=== PATIENT | male | born 1945 | race Caucasian/White ===

== ENCOUNTER 2020-03-11 20:17 | Observation (INO) | payer OTHER, SELFPAY ==
--- NOTE | ~2020-03-11 | CT_ITS ---
EXAMINATION: CT abdomen pelvis w con EXAM DATE: 03/11/2020 21:48 INDICATION: RUQ abd pain. TECHNIQUE: Spiral CT of the abdomen and pelvis was performed following intravenous injection of 100 m L Omnipaque 350. Axial, coronal and sagittal images were reviewed. The dose-length product (DLP) fo r this examination was 632.60 mGy-cm. The exposure was tailored according to patient size (auto mA e xposure control), and iterative reconstruction (ASIR) was used as additional dose reduction technique . There is no prior study for comparison. FINDINGS: Gallbladder is moderately distended with mild adjacent inflammation. There are small periph erally calcified gallstones. No biliary duct dilation. Appearance is suspicious for acute cholecystit is. There is a hypodensity in the left liver lobe medial segment measuring 4.5 cm consistent with a c yst. The spleen, pancreas, and adrenal glands are unremarkable. Portal and splenic veins are patent . Kidneys enhance symmetrically. There is no hydronephrosis. The prostate is unremarkable. The b ladder is unremarkable. There is no retroperitoneal or pelvic lymphadenopathy. There is moderate s cattered arteriosclerotic disease. There are surgical changes consistent with appendectomy. The stomach and small bowel are unremarkab le. There is expected amount of colonic stool. No free intraperitoneal gas. There are sternotomy wires. Mild cardiomegaly. Small amount of basilar groundglass opacity, nonspecific pneumonitis. Th ere are no osteoblastic or osteolytic lesions identified. IMPRESSION: 1. Cholelithiasis, pericholecystic inflammation. Probable acute cholecystitis. 2. Small about of bibasilar groundglass opacity, nonspecific pneumonitis. COVID 19 not excludable. Reviewed, dictated and finalized at location A. ER [facility]STRATE IMPRESSION: 1. Cholelithiasis, pericholecystic inflammation. Probable acute cholecystitis. 2. Small about of bibasilar groundglass opacity, nonspecific pneumonitis. COVI D 19 not excludable.
[2020-03-11 20:22] VITALS: BP 150/64; PULSE 63; RESP 20; TEMP 36.6; O2SAT 100
--- NOTE | 2020-03-11 20:32 | ED.ABDPAIN ---
HPI - Abdominal Pain General Chief Complaint: Abdominal Pain Stated Complaint: abd pain Time Seen by Provider: 03/11/20 20:28 Source: RN notes reviewed History of Present Illness HPI narrative: Patient presents emergency department from home for right upper quad abdominal pain. States pain began approximately 6 PM tonight the pain is located right upper quadrant does not radiate described as sharp and stabbing denies any fevers or chills chest pain shortness of breath nausea vomiting diarrhea or any other symptoms states he attempted to take Melinda-Beaufort at home with no relief Related Data Home Medications Medication Instructions Recorded Confirmed atorvastatin 40 mg PO DAILY 03/11/20 03/11/20 clopidogrel [Plavix] 75 mg PO DAILY 03/11/20 03/11/20 lisinopril 10 mg PO DAILY 03/11/20 03/11/20 metoprolol succinate 50 mg PO DAILY 03/11/20 03/11/20 Allergies Allergy/AdvReac Type Severity Reaction Status Date / Time No Known Allergies Allergy Verified 03/11/20 20:25 Review of Systems Review of Systems: Narrative: Gen.: Denies fevers or chills ENT: Denies congestion Respiratory: Denies shortness of breath or cough CV: Denies chest pain or palpitations GI: See HPI denies burning, urgency, frequency or hematuria Musculoskeletal: Denies back pain or muscle pain Neuro: Denies numbness, tingling, weakness or focal weakness Skin: Denies rash Except as documented, all other systems reviewed and negative [facility] Past Medical History Medical History (Updated 03/11/20 @ 22:29 by Micah Regan DO) Hypercholesterolemia Hypertension Social History Social History (Updated 03/11/20 @ 20:32 by Micah Regan DO) Smoking status: Never smoker Gender identity (if verbalized by the patient): Male Exam Narrative: Exam Narrative: APPEARANCE: No acute distress, nontoxic, resting in bed HEENT: Normocephalic, atraumatic, OMM RESPIRATORY: No respiratory distress, clear to auscultation bilaterally with no rhonchi wheezing or rales CARDIOVASCULAR: RRR s murmur ABDOMINAL: Soft, nondistended, tender palpation right upper quadrant no tenderness in right lower quadrant, left lower quadrant left upper quadrant no rebound or guarding MUSCULOSKELETAl: Moves all extremities. No clubbing, cyanosis or edema. NEURO: Awake and alert. Following commands, speech normal, no focal deficits SKIN:: Warm, dry. Normal Color PSYCHIATRIC: Normal affect/mood Course Course Emergency Course: Called discussed with Dr. Sahni presentation work-up agrees with consult at this time agrees with plan for Zosyn Discussed with KRISTINE Us for Dr. Watters presentation work-up agrees with admission at this time Discussed with patient and family results of workup and diagnosis. Discussed need for admission. Patient and family understand and agree to current treatment plan Vital Signs Vital signs: Vital Signs Temperature 97.9 F 03/11/20 20:22 Pulse Rate 63 03/11/20 20:22 Respiratory Rate 20 03/11/20 20:22 Blood Pressure 150/64 H 03/11/20 20:22 Pulse Oximetry 100 03/11/20 20:22 Temperature 97.9 F 03/11/20 20:22 Pulse Rate 63 03/11/20 20:22 Respiratory Rate 20 03/11/20 20:22 Blood Pressure 150/64 H 03/11/20 20:22 Pulse Oximetry 100 03/11/20 20:22 MDM - Abdominal Pain Lab Data Result diagrams: 03/11/20 21:03 03/11/20 21:03 Labs: Lab Results 03/11/20 03/11/20 Range/Units 21:03 21:03 WBC 5.9 (4.5-10.0) K/mm3 RBC 4.72 (4.6-6.20) M/mm3 Hgb 13.9 L (14.0-18.0) g/dL Hct 43.4 (42.0-52.0) % MCV 91.9 (80-100) fl MCH 29.4 (26-34) pg MCHC 32.0 (32-36) g/dl RDW 12.9 (11.5-14.5) % Plt Count 248 (150-375) k/mm3 MPV 9.6 (7.4-10.4) fl Immature Gran % (Auto) 0.3 (0-0.5) % Neut % (Auto) 64.0 (45.5-73.1) % Lymph % (Auto) 17.7 L (18.3-44.2) % [place] % (Auto) 13.5 H (2.6-8.5) % Eos % (Auto) 3.8 (0-4.4) % Baso % (Auto) 0.7 (0.2-1.2) %
[2020-03-11 21:10] LABS: Basophils Percent Auto 0.7 % (0.2-1.2); Eosinophils Absolute Auto 0.2 K/mm3 (0-0.3); Eosinophils Percent Auto 3.8 % (0-4.4); Hematocrit 43.4 % (42.0-52.0); Hemoglobin 13.9 g/dL (14.0-18.0); Immature Granulocyte Absolute 0.02 K/mm3 (0.00-0.031); Immature Granulocyte Percent A 0.3 % (0-0.5); Lymphocytes Absolute Auto 1.04 K/mm3 (0.9-3.2); Lymphocytes Percent Auto 17.7 % (18.3-44.2); Mean Corpuscular Hemoglobin 29.4 pg (26-34); Mean Corpuscular Volume 91.9 fl (80-100); Mean Platelet Volume 9.6 fl (7.4-10.4); Monocytes Absolute Auto 0.8 K/mm3 (0.1-0.6); Monocytes Percent Auto 13.5 % (2.6-8.5); Neutrophils Absolute Auto 3.8 K/mm3 (1.3-6.7); Platelet Count Result 248 k/mm3 (150-375); Red Blood Count 4.72 M/mm3 (4.6-6.20); Red Cell Distribution Width 12.9 % (11.5-14.5); White Blood Count 5.9 K/mm3 (4.5-10.0)
[2020-03-11] MEDS: SODIUM CHLORIDE 0.9% IV 1,000 ML 999 ML IV CONT (21:16)
[2020-03-11 21:25] LABS: Alanine Aminotransferase 41 U/L (4-50); Albumin Level 4.5 g/dL (3.5-5.1); Alkaline Phosphatase 93 U/L (38-126); Anion Gap 11 mmol/L (8-16); Aspartate Amino Transferase 45 U/L (17-59); Bilirubin,Total 0.4 mg/dL (0.2-1.3); Blood Urea Nitrogen 13 mg/dL (9-20); Calcium 9.6 mg/dL (8.4-10.2); Carbon Dioxide 28 mmol/L (22-30); Chloride 101 mmol/L (98-107); Estimated CRCL calculation 60 ml/min; Estimated Glomerular Filt Rate > 60; Glucose 112 mg/dL (75-110); Lipase 271 U/L (23-300); Potassium 3.7 mmol/L (3.4-5.0); Sodium 140 mmol/L (137-145)
--- NOTE | 2020-03-11 22:08 | PC.NURSE ---
Pt states he is unable to give urine sample. Informed pt that we will have to straight cath him if he is still unable to give sample.
[2020-03-11] MEDS: MORPHINE SULFATE (*CRX) 2 MG/ML INJ IV PUSH (22:32)
[2020-03-11 22:34] LABS: Add Urine Microscopic? YES; Appearance Urine Clear (Clear); Bilirubin Urine Negative (Negative); Blood Urine Negative (Negative); Color Urine Straw (Yellow); Glucose Urine UA Negative (Negative); Ketones Urine Trace mg/dL (Negative); Leukocyte Esterase Ur Negative LEU/UL (Negative); Mucus Urine Rare /lpf; Nitrate Urine Negative (Negative); Protein Urine Negative (Negative); RBC Urine 0-2 /hpf (0-2); Urobilinogen Urine Negative mg/dL (<2.0); WBC Urine 0-3 /hpf
--- NOTE | 2020-03-11 22:45 | PM.IMHP ---
H&P: HPI History of Present Illness Date/Time: 03/11/20 22:45 Chief Complaint: Abdominal pain. Narrative: Micah Cano is a 74-year-old male with coronary artery disease and hypertension who presented to the emergency department earlier today from home with complaints of abdominal pain. At around 18:00 he developed some generalized abdominal discomfort and nausea for which he took an acid without relief. Not long thereafter he developed pretty significant sharp and stabbing pain in his right upper quadrant, radiating somewhat into the right flank. It has been unrelenting since that time, and in route to the emergency department he did have an episode of emesis. CT of the abdomen and pelvis demonstrates acute cholecystitis and he is being admitted in this setting. He has never had similar symptoms in the past. He denies fever and chills. Review of Systems Review of Systems: Narrative: Twelve systems were reviewed with pertinent positives and negatives as per HPI. He is status post three-vessel CABG on 01/15/2020. Prior to that he was on no medications. One day while he and his were out walking he developed chest pain which ultimately led to him having the bypass. He has done quite well since that time and has not had chest pain or shortness of breath. He has mild lower extremity edema. No orthopnea or PND. Except as documented, all other systems were reviewed and are negative. [facility] Past Medical History Medical History (Updated 03/11/20 @ 23:19 by Abeba Agudelo PA-C) Coronary artery disease Hypertension Osteoarthritis Surgical History Surgical History (Updated 03/11/20 @ 23:19 by Abeba Agudelo PA-C) History of appendectomy History of coronary artery bypass graft (~01/15/20) Three-vessel bypass done at [facility] per Dr. Tavera. History of excision of pilonidal cyst History of total bilateral knee replacement Family History Family History (Updated 03/11/20 @ 23:20 by Abeba Agudelo PA-C) Father Lung cancer Sibling Dementia Sibling Cancer of kidney Social History Social History (Updated 03/11/20 @ 23:21 by Abeba Agudelo PA-C) Social History: The patient is and lives with his in [place]. He has 2 daughters. 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 Lifelong nonsmoker. No alcohol or illicit substance abuse. He designates his , Shannon, as his surrogate decision maker and he wishes to be a full code. Meds Home Medications and Allergies Home Medications Medication Instructions Recorded Confirmed Type atorvastatin 40 mg PO DAILY 03/11/20 03/11/20 History clopidogrel [Plavix] 75 mg PO DAILY 03/11/20 03/11/20 History lisinopril 10 mg PO DAILY 03/11/20 03/11/20 History metoprolol succinate 50 mg PO DAILY 03/11/20 03/11/20 History Allergies Allergy/AdvReac Type Severity Reaction Status Date / Time No Known Allergies Allergy Verified 03/11/20 20:25 Vital Signs Vital Signs - 24 hr 03/11/20 20:22 Temperature 97.9 F Pulse Rate 63 Respiratory Rate 20 Blood Pressure 150/64 H Pulse Oximetry 100 Exam Narrative: Exam Narrative: General: Well-developed male supine in bed in mild pain. Weight: 82.5 kg. BMI: 26.1. HEENT: PERRL, EOMI. Sclerae anicteric. Oral mucosa is moist. Neck: Supple. Respiratory: Lungs are clear to auscultation bilaterally. Cardiovascular: Regular rate and rhythm with S1-S2. Chest: Healing sternotomy scar. Gastrointestinal: Abdomen is soft and mildly distended. Positive bowel sounds. He is tender to palpation in the right upper quadrant. No voluntary guarding or rebound tenderness. Skin: Warm and dry. No rash or lesions on limited exam. Extremities: No cyanosis or clubbing. Trace caroline ankle edema bilaterally. Left radial pulse is diminished and it looks like he had an arterial graft just above that site for his bypass. Right radial and pedal pulses palpable.
[2020-03-11 23:51] VITALS: BP 153/66; RESP 18; TEMP 36.7; O2SAT 97
[2020-03-12] VITALS (10 sets, daily range): BP systolic 120–138; BP diastolic 56–86; PULSE 55–76; RESP 12–20; TEMP 36.1–36.9; O2SAT 94–100; BMI 26.5
--- NOTE | 2020-03-12 00:01 | ADMGEN ---
This patient, Micah Cano, was admitted to Medical Room 252-01. Patient/family oriented to hospital policies and general routines including ID bracelet, bed and alarms, visiting hours, pain management, procedures, bathroom and other care routines, personal items, smoking policy, room service/diet, and visiting hours. Information on how to activate the Rapid Response Team has been discussed. Patient/Family are encouraged to report perceived risks to care and to ask questions if they do not understand what they are told or what they should do.
[2020-03-12] MEDS: SODIUM CHLORIDE 0.9% IV 1,000 ML 100 ML IV CONT (00:12)
[2020-03-12] MEDS: MORPHINE SULFATE (*CRX) 4 MG/ML INJ 2 MG IV PUSH ×4 (00:25→08:14)
[2020-03-12 06:31] LABS: Basophils Percent Auto 0.6 % (0.2-1.2); Eosinophils Absolute Auto 0.1 K/mm3 (0-0.3); Eosinophils Percent Auto 1.4 % (0-4.4); Hemoglobin 13.1 g/dL (14.0-18.0); Immature Granulocyte Absolute 0.01 K/mm3 (0.00-0.031); Immature Granulocyte Percent A 0.2 % (0-0.5); Lymphocytes Absolute Auto 0.91 K/mm3 (0.9-3.2); Lymphocytes Percent Auto 18.7 % (18.3-44.2); Mean Corpuscular Hemoglobin 29.4 pg (26-34); Mean Corpuscular Volume 91.9 fl (80-100); Mean Platelet Volume 9.7 fl (7.4-10.4); Monocytes Absolute Auto 0.7 K/mm3 (0.1-0.6); Neutrophils Absolute Auto 3.1 K/mm3 (1.3-6.7); Neutrophils Percent Auto 64.1 % (45.5-73.1); Platelet Count Result 207 k/mm3 (150-375); Red Blood Count 4.46 M/mm3 (4.6-6.20); White Blood Count 4.9 K/mm3 (4.5-10.0)
[2020-03-12 07:03] LABS: Alanine Aminotransferase 36 U/L (4-50); Albumin Level 3.5 g/dL (3.5-5.1); Alkaline Phosphatase 77 U/L (38-126); Anion Gap 9 mmol/L (8-16); Aspartate Amino Transferase 37 U/L (17-59); Bilirubin,Total 0.4 mg/dL (0.2-1.3); Blood Urea Nitrogen 9 mg/dL (9-20); Calcium 8.6 mg/dL (8.4-10.2); Carbon Dioxide 25 mmol/L (22-30); Chloride 104 mmol/L (98-107); Estimated CRCL calculation 74 ml/min; Estimated Glomerular Filt Rate > 60; Glucose 99 mg/dL (75-110); Magnesium 1.9 mg/dL (1.6-2.3); Potassium 3.7 mmol/L (3.4-5.0); Sodium 138 mmol/L (137-145)
--- NOTE | 2020-03-12 09:23 | PM.IMHP ---
H&P: HPI History of Present Illness Date/Time: 03/12/20 09:23 Chief Complaint: Right upper quadrant pain Narrative: Micah Cano is a 74 male with a history of coronary artery disease and hypertension who presented to the emergency department last evening from home with complaints of abdominal pain. At around 18:00 he developed some generalized abdominal discomfort in the epigatrium and RUQ and nausea for which he took antacid without relief. Not long thereafter he developed pretty significant sharp and stabbing pain in his right upper quadrant, radiating somewhat into the right flank. It has been unrelenting since that time, and in route to the emergency department he did have an episode of emesis. Workup in the emergency room included a CT scan of the abdomen and pelvis and labs which shows somewhat elevated white count. His liver function tests were normal. CT of the abdomen and pelvis demonstrates acute cholecystitis and he is being admitted in this setting. He has never had similar symptoms in the past. He denies fever and chills Review of Systems Constitutional: Constitutional: Reports no additional constitutional complaints, Reports fatigue and Denies malaise Eyes: Eyes: Denies change in vision and Denies loss of vision ENT: Reports Normal hearing present, Denies change in voice, Denies dizziness, Denies hoarseness and Denies sore throat Cardiovascular: Cardiovascular: Denies chest pain, Denies leg edema and Denies dyspnea Respiratory: Respiratory: Denies cough, Denies dyspnea and Denies wheezing Gastrointestinal: Gastrointestinal: Denies hematochezia, Denies change in bowel habits and Denies heartburn Genitourinary: Genitourinary: Denies urinary frequency and Denies urinary incontinence Neurologic: Reports Normal hearing present, Denies confusion, Denies dizziness, Denies loss of vision, Denies memory loss and Denies seizure-like activity Psychiatric: Psychiatric: Denies confusion, Denies depression and Denies memory loss Endocrine: Endocrine: Denies cold intolerance and Reports fatigue Hematologic/Lymphatic: Hematologic/Lymphatic: Denies easy bleeding and Denies easy bruising Allergic/Immunologic: Allergic/Immunologic: Denies wheezing PMFSH Past Medical History Medical History Coronary artery disease Hypertension Osteoarthritis Surgical History Surgical History History of appendectomy History of coronary artery bypass graft (~10/30/20) Three-vessel bypass done at [facility] per Dr. Tavera. History of excision of pilonidal cyst History of total bilateral knee replacement Family History Family History Father Lung cancer Sibling Dementia Sibling Cancer of kidney Social History Social History Social History: The patient is and lives with his in [place]. He has 2 daughters. 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 Lifelong nonsmoker. No alcohol or illicit substance abuse. He designates his , Shannon, as his surrogate decision maker and he wishes to be a full code. Smoking status: Former smoker Tobacco type: cigarettes Alcohol intake: current Drinks per week: 1 Substance use: current Substance use type: does not use Gender identity (if verbalized by the patient): Male Sexual Orientation (if Verbalized by the Patient): Straight or Heterosexual Spiritual care concerns: No Meds Home Medications and Allergies Home Medications Medication Instructions Recorded Confirmed Type atorvastatin 40 mg PO DAILY 03/11/20 03/11/20 History clopidogrel [Plavix] 75 mg PO DAILY 03/11/20 03/11/20 History lisinopril 10 mg PO DAILY 03/11/20 03/11/20 History metoprolol succinate 50 mg PO DAILY 03/11/2002/16
[2020-03-12] MEDS: LACTATED RINGERS 1,000 ML 30 ML IV CONT ×2 (10:20→12:45)
--- NOTE | 2020-03-12 10:22 | WPDANESEPPF ---
Anes - Initial Pre Proc Eval Date/Time: 03/12/20 10:22 Surgeon: Kamla David NP Pre Op Diagnosis: cholecystitis Patient Data Age: 74 Gender: M Height: 5 ft 10 in Weight: 84.2 kg Last Vital Signs Temp 36.9 C 03/12/20 06:00 Pulse 55 L 03/12/20 06:00 Resp 16 03/12/20 06:00 BP 138/56 L 03/12/20 06:00 Pulse Ox 99 03/12/20 06:00 Allergies Allergy/AdvReac Type Severity Reaction Status Date / Time No Known Allergies Allergy Verified 03/11/20 20:25 Home Medications Medication Instructions Recorded Confirmed Type atorvastatin 40 mg PO DAILY 03/11/20 03/11/20 History clopidogrel [Plavix] 75 mg PO DAILY 03/11/20 03/11/20 History lisinopril 10 mg PO DAILY 03/11/20 03/11/20 History metoprolol succinate 50 mg PO DAILY 03/11/20 03/11/20 History Laboratory Tests 03/11/20 03/11/20 03/11/20 21:03 21:03 22:25 WBC 5.9 K/mm3 K/mm3 (4.5-10.0) RBC 4.72 M/mm3 M/mm3 (4.6-6.20) Hgb 13.9 g/dL L g/dL (14.0-18.0) Hct 43.4 % % (42.0-52.0) MCV 91.9 fl fl (80-100) MCH 29.4 pg pg (26-34) MCHC 32.0 g/dl g/dl (32-36) RDW 12.9 % % (11.5-14.5) Plt Count 248 k/mm3 k/mm3 (150-375) MPV 9.6 fl fl (7.4-10.4) Immature Gran % (Auto) 0.3 % % (0-0.5) Neut % (Auto) 64.0 % % (45.5-73.1) Lymph % (Auto) 17.7 % L % (18.3-44.2) [place] % (Auto) 13.5 % H % (2.6-8.5) Eos % (Auto) 3.8 % % (0-4.4) Baso % (Auto) 0.7 % % (0.2-1.2) Lymph # (Auto) 1.04 K/mm3 K/mm3 (0.9-3.2) [place] # (Auto) 0.8 K/mm3 H K/mm3 (0.1-0.6) Eos # (Auto) 0.2 K/mm3 K/mm3 (0-0.3) Baso # (Auto) 0.0 K/mm3 K/mm3 (0.0-0.1) Abs Immat Gran (auto) 0.02 K/mm3 K/mm3 (0.00-0.031) Absolute Neuts (auto) 3.8 K/mm3 K/mm3 (1.3-6.7) Absolute Nucleated RBC 0.0 K/mm3 K/mm3 (0.0-0.012) Nucleated RBC % 0.0 % % (0.0-0.2) Sodium 140 mmol/L mmol/L (137-145) Potassium 3.7 mmol/L mmol/L (3.4-5.0) Chloride 101 mmol/L mmol/L (98-107) Carbon Dioxide 28 mmol/L mmol/L (22-30) Anion Gap 11 mmol/L mmol/L (8-16) BUN 13 mg/dL mg/dL (9-20) Creatinine 1.00 mg/dL mg/dL (0.7-1.3) Estim Creat Clear Calc 60 ml/min ml/min Estimated GFR > 60 (59 - ) Glucose 112 mg/dL H mg/dL (75-110) Calcium 9.6 mg/dL mg/dL (8.4-10.2) Magnesium Total Bilirubin 0.4 mg/dL mg/dL (0.2-1.3) AST 45 U/L U/L (17-59) ALT 41 U/L U/L (4-50) Alkaline Phosphatase 93 U/L U/L (38-126) Total Protein 8.0 g/dL g/dL (6.3-8.2) Albumin 4.5 g/dL g/dL (3.5-5.1) Lipase 271 U/L U/L (23-300) Urine Color Straw (Yellow) Urine Appearance Clear (Clear) Urine pH 6.0 (5.0-9.0) Ur Specific Hazel 1.040 H (1.001-1.035) Urine Protein Negative mg/dL mg/dL (Negative) Urine Glucose (UA) Negative mg/dL mg/dL (Negative) Urine Ketones Trace mg/dL mg/dL (Negative) Ur Blood (Man) Negative (Negative) Urine Nitrate Negative (Negative) Urine Bilirubin Negative (Negative) Urine Urobilinogen Negative mg/dL mg/dL (<2.0) Leukocyte Esterase Rfl Negative NISHA/UL NISHA/UL (Negative) Urine RBC 0-2 /hpf /hpf (0-2) Urine WBC 0-3 /hpf /hpf Urine Mucus Rare /lpf /lpf 03/12/20 03/12/20 06:25 06:25 WBC 4.9 K/mm3 K/mm3 (4.5-10.0) RBC 4.46 M/mm3 L M/mm3 (4.6-6.20) Hgb 13.1 g/dL L g/dL (14.0-18.0) Hct 41.0 % L % (42.0-52.0) MCV 91.9 fl fl (80-100) MCH 29.4 pg pg (26-34) MCHC 32.0 g/dl g/dl (32-36) RDW 13.0 % % (11.5-14.5) Plt Cou
--- NOTE | 2020-03-12 10:25 | ECG_ITS ---
Measurements Intervals [place] Rate: 59 P: 53 ME: 181 QRS: -12 QRSD: 107 T: 34 QT: 452 QTc: 448 Interpretive Statements SINUS BRADYCARDIA INCOMPLETE RIGHT BUNDLE BRANCH BLOCK BORDERLINE ECG Electronically Signed On 03-12-2020 14:16:09 TIP STITCHER by Jeffrey Doherty D.O.
--- NOTE | 2020-03-12 10:49 | WPDHPUPDATE1 ---
History and Physical Update Update Date/Time: 03/12/20 10:49 History and Physical has been reviewed, including an updated exam of the patient. There are NO changes in the patient's condition. Risks, benefits, and alternatives have been discussed and questions answered. Patient agrees to proceed with procedure.
[2020-03-12] MEDS: BUPIVACAINE/EPINEPHRINE 0.25% 10 ML VIAL 20 ML INFILTRATE (11:50)
--- NOTE | 2020-03-12 13:28 | PM.PROC ---
Procedure Note - Detailed Date of procedure: 03/12/20 Pre-op diagnosis: cholecystitis Acute cholecystitis with cholelithiasis Post-op diagnosis: same Procedure performed: Laparoscopic cholecystectomy Description of procedure: Patient was seen preoperatively in the holding area and risks, benefits and alternatives confirmed. Patient was taken to the operating room and general anesthesia was induced. A time out was then preformed with the surgery team confirming patient and site of surgery. The abdomen was prepped and draped in the usual sterile fashion. Incision was made just below the umbilicus with an 11 blade knife. I placed 2 stay sutures of O- Vicryl on either side of the mid-line fascia beneath the umbilicus and was then able to slide in the Whaley cannula through the fascial defect into the peritoneum. First under low flow and then under high flow the abdomen was insufflated with carbon dioxide never exceeding a pressure of 15. Three 5 mm trocars were then introduced under direct vision. The following trocars were introduced under direct vision: a 12 mm in the epigastrium and two 5 mm trocars along the right costal margin laterally in the subcostal area. This point the patient had tachycardia to the 120s and so we released the pneumo peritoneum and waited for 5 minutes. His heart rate came down and then we proceeded. After this we reinsufflated the abdomen and kept the pressure at 12 mmHg for the remaining portion of the procedure. He tolerated this well without further significant arrhythmias.. Please see anesthesiology notes for further details on this. There were significant omental adhesions to the underside of the gallbladder. These were taken down with blunt and sharp dissection using some Bovie cautery for hemostasis. We were able to dissect this completely away from the neck of the gallbladder. At this point because the gallbladder was tensely distended and discolored I went ahead and used an aspirating needle and decompressed the gallbladder. 20 cc of clear fluid from the gallbladder was sent for Gram stain and C&S. Another 20-40 cc was aspirated and the gallbladder was then easy to grasp. We grasped the gallbladder at the site where the drainage was aspirated with 1 grasper and then tented it up over the liver to proceed with the dissection. I then carefully used the L-shaped cautery and the [place] dissector to dissect out the triangle of Calot. I then was able to dissect out both the cystic duct and cystic artery and identify a window of safety. The gall bladder was grasped and the cystic duct and artery were dissected free and clipped with an 5 mm endo-clip email developer. The cystic duct and artery were clipped with use of 2 clips on the patient's side 1 on the gallbladder side utilizing a 5 mm endoclip-email developer. The cystic duct was then transected. The cystic artery was also transected at this point. The gall bladder was removed using electrocautery and then removed from the abdomen using an endobag . Some of the fluid from the gallbladder did spill from the bag as we were removing the gallbladder from the umbilical incision. This was caught in a lap and some 4x4s. I changed my outer gloves after we passed the specimen off the field. At this point since I had used a 12 mm port at the epigastric site I used the Niles cone and a 1. Vicryl passed with a granny needle to close the fascia at this site. We also used an 0 Vicryl on the visible anterior rectus sheath within this wound after removing the Niles cone. This approximated the fascia nicely at this 12 mm site in the epigastrium. The trocars were removed visualizing hemostasis and the remaining gas evacuated. The large trocar site at the umbilicus was closed with use of the 2 stay sutures of 0 Vicryl mentioned above and also a figure of 8 # 1-Vicryl suture and 1 more inferior 0 Vicryl suture. These 2 approximated the midline fascia well. The 2 stay sutures mentioned above
--- NOTE | 2020-03-12 14:36 | PM.IMPN ---
Progress Note: A&P Assessment and Plan (1) Cholecystitis, acute with cholelithiasis: Onset Date: ~03/11/20 Code(s): K80.00 - Calculus of gallbladder with acute cholecystitis without obstruction Status: Acute Assessment and Plan: CT scan shows signs of acute cholecystitis which started yesterday so he was a good candidate for laparoscopic cholecystectomy. tolerated laparoscopic cholecystectomy well. no current s/s of bleeding, infection, injury to surrounding organs Plavix on hold, re-examine in the morning. VS stable post - op, Alert and Oriented x 3. receiving IV antibiotic Zosyn (2) Hypercholesterolemia: Onset Date: Unknown Code(s): E78.00 - Pure hypercholesterolemia, unspecified Status: Acute Assessment and Plan: Continue current home medications tomorrow restart Atorvastatin and restart Plavix tomorrow , if appropriate. Plavix (due to recent 3 vessel bypass) (3) Hypertension: Onset Date: Unknown Code(s): I10 - Essential (primary) hypertension Status: Acute Assessment and Plan: Controlled at this time with PO meds. Continue current medications as needed with sip of water. HTN control: Lisinopril and Metprolol from Home VS stable at thie time. HR 60-70s, SBP 120-130s. Continuos Telemetry monitoring. Electrolytes stable and recheck in morning. Subjective Date/time seen: 03/12/20 14:36 Micah is recovering well from his lap kala today due to Acute Kala. I spoke with Surgeon Dr. Sahni and was updated. Micah experienced a short run of sinus tach during surgery, so he will be monitored for next 24 hours/overnight via continuous telemetry monitoring. His electroyltes were stable with K 3.7, Sodium 138, Mag 1.9, and Glucose 99 this morning. LFTs wnl. He is currently denying chest pain or chest pressure, SOB, or dyspnea or pain at any location at this time. His 4 lap abd incisions are well approximated, without swelling/redness, and have dermabond intact. No drainage or open areas. Will advance his diet as tolerated, starting with clears, and see how he feels tomorrow. Dr. Sahni felt that the patient could resume his Plavix tomorrow, if his labs are stable in the morning. Review of Systems Review of Systems: All systems reviewed & are unremarkable except as noted in HPI and below Constitutional: Constitutional: Reports as per HPI, Reports no additional constitutional complaints, Reports fatigue, Denies malaise and Reports weakness Eyes: Eyes: Reports as per HPI, Denies change in vision and Denies loss of vision ENT: Reports as per HPI, Reports Normal hearing present, Denies change in voice, Denies dizziness, Denies hoarseness, Denies epistaxis, Denies nasal discharge and Denies sore throat Cardiovascular: Cardiovascular: Reports as per HPI, Denies chest pain, Denies leg edema and Denies dyspnea Respiratory: Respiratory: Reports as per HPI, Denies chest congestion, Denies cough, Denies dyspnea, Denies dyspnea on exertion and Denies wheezing Gastrointestinal: Gastrointestinal: Reports as per HPI, Denies abdominal pain, Denies hematochezia, Denies change in bowel habits, Denies heartburn, Denies nausea, Denies vomiting and Denies hematemesis Genitourinary: Genitourinary: Reports as per HPI, Denies urinary frequency and Denies urinary incontinence Musculoskeletal: Musculoskeletal: Reports as per HPI Integumentary/Breasts: Skin/Breast: Reports as per HPI and Reports wounds (WNL lap kala abd incisions described above.) Neurologic: Reports as per HPI, Reports Normal hearing present, Denies Abnormal speech present, Reports abnormal gait (untested, recovering from OR), Denies confusion, Denies dizziness, Denies headache(s), Denies loss of vision, Denies memory loss, Denies numbness and Denies seizure-like activity Psychiatric: Psychiatric: Reports as per HPI, Denies anxiety, Denies confusion, Denies depression and Denies memory loss Endocrine: Endocrine:
[2020-03-12] MEDS: SENNA/DOCUSATE SODIUM TABLET 2 TAB PO (21:21)
[2020-03-13] VITALS (7 sets, daily range): BP systolic 110–128; BP diastolic 55–61; PULSE 67–80; RESP 16; TEMP 36.1–36.6; O2SAT 93–99
[2020-03-13 06:00] LABS: Hematocrit 34.5 % (42.0-52.0); Hemoglobin 11.5 g/dL (14.0-18.0); Mean Corpuscular HGB Conc 33.3 g/dl (32-36); Mean Corpuscular Hemoglobin 29.7 pg (26-34); Mean Corpuscular Volume 89.1 fl (80-100); Mean Platelet Volume 9.6 fl (7.4-10.4); Platelet Count Result 207 k/mm3 (150-375); Red Blood Count 3.87 M/mm3 (4.6-6.20); Red Cell Distribution Width 13.2 % (11.5-14.5); White Blood Count 6.1 K/mm3 (4.5-10.0)
[2020-03-13 06:11] LABS: Alanine Aminotransferase 58 U/L (4-50); Albumin Level 3.4 g/dL (3.5-5.1); Alkaline Phosphatase 68 U/L (38-126); Anion Gap 5 mmol/L (8-16); Aspartate Amino Transferase 57 U/L (17-59); Bilirubin,Total 0.5 mg/dL (0.2-1.3); Blood Urea Nitrogen 9 mg/dL (9-20); Calcium 8.6 mg/dL (8.4-10.2); Carbon Dioxide 30 mmol/L (22-30); Chloride 100 mmol/L (98-107); Estimated CRCL calculation 66 ml/min; Estimated Glomerular Filt Rate > 60; Glucose 115 mg/dL (75-110); Potassium 3.8 mmol/L (3.4-5.0); Sodium 135 mmol/L (137-145)
[2020-03-13] MEDS: HYDROcodone/acetaminophen (*CRX) 5-325 MG TABLET 1 TAB PO (07:42)
--- NOTE | 2020-03-13 08:30 | WPDANESPN ---
Anes - Prog Note Post-Op Date/Time: 03/13/20 08:30 Cardiovascular status: normal Respiratory status: normal Airway patency: baseline Mental status: baseline Post-Op hydration status: normal Vital Signs: Last Vital Signs Temp 36.1 C L 03/13/20 06:00 Pulse 72 03/13/20 06:00 Resp 16 03/13/20 06:00 BP 121/59 L 03/13/20 06:00 Pulse Ox 99 03/13/20 06:00 Pain Score (VAS): 0/10. Patient resting in bed at time of assessment, appears comfortable. I/O: Intake & Output 03/12/20 03/13/20 03/13/20 23:59 07:59 15:59 Intake Total 550 300 Output Total 650 2000 Balance -100 -1700 Laboratory Tests 03/13/20 05:45 03/13/20 05:45 03/12/20 03/13/20 03/13/20 09:41 05:45 05:45 WBC 6.1 RBC 3.87 L Hgb 11.5 L Hct 34.5 L MCV 89.1 MCH 29.7 MCHC 33.3 RDW 13.2 Plt Count 207 MPV 9.6 Sodium 135 L Potassium 3.8 Chloride 100 Carbon Dioxide 30 Anion Gap 5 L BUN 9 Creatinine 0.90 Estim Creat Clear Calc 66 Estimated GFR > 60 Glucose 115 H Calcium 8.6 Total Bilirubin 0.5 AST 57 ALT 58 H Alkaline Phosphatase 68 Total Protein 6.0 L Albumin 3.4 L Blood Type A Negative Antibody Screen Negative Post-procedural complaints: none Patient Feedback: Patient satisfied with anesthetic care.
[2020-03-13] MEDS: ENOXAPARIN 40 MG/0.4 ML SYRINGE SUB-Q (09:15)
--- NOTE | 2020-03-13 11:53 | PM.DS ---
DS: Admitting Diagnosis Admitting Diagnosis Admitting Diagnosis: Acute Cholecystitis DS: Discharge Diagnosis Discharge Diagnosis (1) Cholecystitis, acute with cholelithiasis: Onset Date: ~03/11/20 Code(s): K80.00 - Calculus of gallbladder with acute cholecystitis without obstruction Status: Acute Assessment and Plan: CT scan shows signs of acute cholecystitis so he was a good candidate for laparoscopic cholecystectomy completed yesterday . tolerated laparoscopic cholecystectomy well. no current s/s of bleeding, infection, injury to surrounding organs H/H stable, slight drip likely from IVFs. Hgb from 13.1 to 11. 1, Hct drop from 41 to 34. Discussed taking iron with patient as needed. Ordered repeat CBC for 1 week after discharge with results sent to Surgeon and PCP for follow up. Plavix restarted on discharge, surgical sites re-examined this morning. cardiac telemetry reviewed - no ectopy and no arrhythmias and no rate irregularities. VS stable post - op, Alert and Oriented x 3. received postop IV antibiotic Zosyn, surgeon discharged patient on oral levaquin (2) Hypercholesterolemia: Onset Date: Unknown Code(s): E78.00 - Pure hypercholesterolemia, unspecified Status: Acute Assessment and Plan: Continue current home medications at discharge restarted Atorvastatin and Plavix at discharge per surgeon on Plavix (due to recent 3 vessel bypass at [facility] in last few months) (3) Hypertension: Onset Date: Unknown Code(s): I10 - Essential (primary) hypertension Status: Acute Assessment and Plan: Controlled at this time with PO meds. Continue current medications as needed with sip of water. HTN control: Lisinopril and Metprolol from Home VS stable at thie time. HR 60-70s, SBP 120. Continuous Telemetry monitoring very stable. Electrolytes stable with recheck today. (4) Anemia: Code(s): D64.9 - Anemia, unspecified Status: Acute Assessment and Plan: no current s/s of bleeding, infection, injury H/H stable, slight drip likely from IVFs. Hgb from 13.1 to 11. 1, Hct drop from 41 to 34. Discussed taking iron with patient as needed. Ordered repeat CBC for 1 week after discharge with results sent to Surgeon and PCP for follow up. Plavix restarted on discharge, surgical sites re-examined this morning. DS: Summary Hospital Course Hospital Course: Improved. Stable. Time Spent with Patient Time attestation: Total time spent providing and/or coordinating discharge services: 45 minutes Exam Narrative: Exam Narrative: General: Well-developed male supine in bed in mild pain. Weight: 82.5 kg. BMI: 26.1. HEENT: PERRL, EOMI. Sclerae anicteric. Oral mucosa is moist. Neck: Supple. Respiratory: Lungs are clear to auscultation bilaterally. Cardiovascular: Regular rate and rhythm with S1-S2. Chest: Healing sternotomy scar. Gastrointestinal: Abdomen is soft and mildly distended. Positive to slightly hypoactive bowel sounds. Generalized tenderness, lap kala incisions WNL. No voluntary guarding or rebound tenderness. Skin: Warm and dry. No rash or lesions on limited exam. Extremities: No cyanosis or clubbing. Trace caroline ankle edema bilaterally. Left radial pulse is diminished and it looks like he had an arterial graft just above that site for his bypass. Right radial and pedal pulses palpable. Neurological: Alert. Cranial nerves 2-12 are grossly intact. No gross focal deficits to casual conversation. Psychiatric: Pleasant and cooperative with normal mood and affect. Judgment and insight intact. Const: General: cooperative, no acute distress, well developed, alert and awake; No confusion Nutritional Appearance: well nourished Orientation/consciousness: patient oriented x3 and No confusion Limitations: no limitations HENMT: Head: normal to inspection, normocephalic and atraumatic Ears: hearing grossly normal bilaterally Genera
--- NOTE | 2020-03-13 12:58 | PM.PNGS ---
Progress Note: A&P Assessment and Plan (1) Cholecystitis, acute with cholelithiasis: Onset Date: ~03/11/20 Code(s): K80.00 - Calculus of gallbladder with acute cholecystitis without obstruction Status: Acute Assessment and Plan: patient seems to be making the an uneventful recovery. He will follow low-fat diet when he goes home. I think he can go after lunch he tolerates that well. Will see him in the office in 2 weeks. Will send Levaquin 7 her 50 mg tablet 3-4 more tabs take once a day starting tomorrow because of his acute cholecystitis. Cultures on his bile are pending and we will call him and change the antibiotic if needed. (2) Hypercholesterolemia: Onset Date: Unknown Code(s): E78.00 - Pure hypercholesterolemia, unspecified Status: Acute (3) Hypertension: Onset Date: Unknown Code(s): I10 - Essential (primary) hypertension Status: Acute Additional Plan Script for Lortab five/ three twenty five also sent to his pharmacy today. Okay with me for discharge if tolerates his diet well at lunch. Patient to follow low-fat diet sheet that I gave him preop. Time Spent With Patient Time with patient: less than 15 minutes Subjective Subjective Date/Time Seen: 03/13/20 11:58 Patient is sitting up in bed when I entered the room. He has tolerated a full liquid diet for breakfast and will try a soft low-fat diet at lunch. If does well as okay with me to go home. He is not having much pain. Pain is could well controlled with the Lortab 5/325 and I will since some of these to his pharmacy for use after discharge. Patient understands and he is to see me in about two w Review of Systems Constitutional: Constitutional: Reports no additional constitutional complaints ENT: Reports other (Mucous Membranes moist.) Cardiovascular: Cardiovascular: Denies dyspnea Respiratory: Respiratory: Denies pain on inspiration and Denies dyspnea Gastrointestinal: Gastrointestinal: Reports as per HPI and Reports no additional gastrointestinal complaints Musculoskeletal: Musculoskeletal: Reports other (No calf swelling or edema) Integumentary/Breasts: Skin/Breast: Reports system reviewed and no additional complaints, except as docu Exam Const: General: cooperative, no acute distress, alert and awake Orientation/consciousness: patient oriented x3 HENMT: Mouth: Yes moist mucous membranes Neck: Neck: normal visual inspection Chest: Chest palpation & inspection: normal inspection of the chest Resp: Effort & Inspection: normal respiratory effort Auscultation: clear to auscultation bilaterally Cardio: Jugular venous distension: no JVD Rate: regular rate Rhythm: regular rhythm GI: Inspection: incision ( Clean and dry) Auscultation: normal bowel sounds Rectal Exam: deferred Neuro: General: patient oriented x3 and moves all extremities Speech: normal speech Extrem: General: normal exam except as noted Psych: Mental Status: mental status grossly normal Speech and movement: Normal speech and movement present Affect: normal affect Thought content: Yes Normal thought content present Objective Data Vital Signs Vital Signs: Vital Signs - 24 hr 03/12/20 13:00 03/12/20 13:15 03/12/20 13:30 Temperature Pulse Rate 65 66 61 Respiratory Rate 19 12 17 Blood Pressure 122/59 L 125/57 L 120/60 Pulse Oximetry 96 98 97 03/12/20 14:00 03/12/20 16:00 03/12/20 20:00 Temperature 36.6 C Pulse Rate 76 70 69 Respiratory Rate 14 Blood Pressure 133/86 Pulse Oximetry 97 03/12/20 22:36 03/13/20 00:00 03/13/20 02:00 Temperature 36.4 C L 36.6 C Pulse Rate 73 77 67 Respiratory Rate 16 16 Blood Pressure 120/60 110/61 Pulse Oximetry 94 96 03/13/20 04:00 03/13/20 06:00 03/13/20 08:00 Temperature 36.1 C L Pulse Rate 69 72 74 Respiratory Rate 16 Blood Pressure 121/59 L Pulse Oximetry 99 Intake/Output Intake/Output: Intake & Output 03/10
== END 2020-03-13 15:31 | disposition home or self-care (01) ==
LOC: ANHED 23:08 → ANH2MED 23:21
PROVIDERS: Surgery; Admitting Provider Student in an Organized Health Care Education/Training Program; Emergency Provider Emergency Medicine; PCP Internal Medicine; Visit Provider Nurse Practitioner
PROC: 0FT44ZZ Resection of Gallbladder, Percutaneous Endoscopic Approach (ICD-10-PCS; CPT 47562; principal; 2020-03-12 12:00)
DX: K80.00 Calculus of gallbladder with acute cholecystitis without obstruction (principal); I10 Essential (primary) hypertension; E78.00 Pure hypercholesterolemia, unspecified; D64.9 Anemia, unspecified; I25.10 Atherosclerotic heart disease of native coronary artery without angina pectoris; M19.90 Unspecified osteoarthritis, unspecified site; Z79.02 Long term (current) use of antithrombotics/antiplatelets; Z95.1 Presence of aortocoronary bypass graft; Z87.891 Personal history of nicotine dependence; Z23 Encounter for immunization
CPT/HCPCS: 47562; 36415; 74177; 80053; 81001; 83690; 83735; 85025; 85027; 86850; 86900; 86901; 87070; 87075; 87205; 88304; 90471; 90653; 93005; 96361; 96365; 96366; 96367; 96372; 96375; 96376; 99285; A9270; G0008; G0378; J0131; J1100; J1650; J2270; J2370; J2405; J2543; J2704; J3010; J7030; J7120; Q9967

== ENCOUNTER 2020-03-22 16:14 | Outpatient (CLI) | payer OTHER, SELFPAY ==
[2020-03-22 16:36] LABS: Basophils Percent Auto 0.4 % (0.2-1.2); Eosinophils Absolute Auto 0.1 K/mm3 (0-0.3); Eosinophils Percent Auto 1.3 % (0-4.4); Hematocrit 37.4 % (42.0-52.0); Immature Granulocyte Absolute 0.03 K/mm3 (0.00-0.031); Immature Granulocyte Percent A 0.6 % (0-0.5); Lymphocytes Absolute Auto 0.96 K/mm3 (0.9-3.2); Lymphocytes Percent Auto 20.3 % (18.3-44.2); Mean Corpuscular HGB Conc 32.1 g/dl (32-36); Mean Corpuscular Hemoglobin 28.8 pg (26-34); Mean Corpuscular Volume 89.7 fl (80-100); Mean Platelet Volume 8.9 fl (7.4-10.4); Monocytes Absolute Auto 0.4 K/mm3 (0.1-0.6); Monocytes Percent Auto 8.2 % (2.6-8.5); Neutrophils Absolute Auto 3.3 K/mm3 (1.3-6.7); Neutrophils Percent Auto 69.2 % (45.5-73.1); Platelet Count Result 326 k/mm3 (150-375); Red Blood Count 4.17 M/mm3 (4.6-6.20); Red Cell Distribution Width 13.2 % (11.5-14.5); White Blood Count 4.7 K/mm3 (4.5-10.0)
[2020-03-22 16:45] LABS: Alanine Aminotransferase 45 U/L (4-50); Alkaline Phosphatase 157 U/L (38-126); Anion Gap 7 mmol/L (8-16); Aspartate Amino Transferase 53 U/L (17-59); Bilirubin,Total 0.5 mg/dL (0.2-1.3); Blood Urea Nitrogen 11 mg/dL (9-20); Calcium 8.9 mg/dL (8.4-10.2); Carbon Dioxide 27 mmol/L (22-30); Chloride 99 mmol/L (98-107); Estimated Glomerular Filt Rate > 60; Glucose 108 mg/dL (75-110); Lipase 144 U/L (23-300); Potassium 3.7 mmol/L (3.4-5.0); Sodium 133 mmol/L (137-145)
== END 2020-03-22 16:15 | disposition home or self-care (01) ==
LOC: ANHLAB 16:16
PROVIDERS: Surgery; PCP Internal Medicine; Visit Provider Nurse Practitioner
DX: K80.00 Calculus of gallbladder with acute cholecystitis without obstruction (principal); E78.00 Pure hypercholesterolemia, unspecified; I10 Essential (primary) hypertension
CPT/HCPCS: 36415; 80053; 83690; 85025

== ENCOUNTER 2020-03-25 06:40 | Outpatient (CLI) | payer OTHER, SELFPAY ==
--- NOTE | ~2020-03-25 | MR_ITS ---
EXAMINATION: MR MRCP wo/w con/w 3D wo ind DATE: 03/25/2020 08:20 INDICATION: Epigastric abdominal pain. Encounter for surgical aftercare following surgery of the dige stive system. TECHNIQUE: Magnetic resonance imaging (MRI) of the abdomen was performed without and with 16 mL Multi Renee intravenous contrast. Sequences included coronal T2-weighted FS FSE, coronal T2-weighted FSE, a xial T1-weighted LAVA, coronal FS FIESTA, axial dual-echo T1-weighted SPGR, coronal lava-FLEX, sagitt al T2-weighted FSE, axial T2-weighted FSE, and axial DWI. Thick-slab T2-weighted FSE images were obta ined for magnetic resonance cholangiopancreatography (MRCP). Maximum intensity projection 3-D reconst ructions of the volumetric data were created by the technologist. Postcontrast sequences included cor onal LAVA-flex and time course of axial T1-weighted LAVA. COMPARISON: CT abdomen and pelvis 03/11/2020 FINDINGS: ABDOMEN MRI: The visualized portions of the lung bases demonstrate patchy airspace opacities bilatera lly. No pleural effusion. The heart size is normal. No pericardial effusion. There is a 4.7 cm cyst i n the liver. The gallbladder is absent. There is a 5.1 x 2.8 x 3.4 cm fluid collection in the gallbla dder fossa. The spleen, pancreas, adrenal glands, and kidneys are normal. ABDOMEN MRCP: The common duct is normal and measures 6 mm. No choledocholithiasis. IMPRESSION: 1. 5.1 x 2.8 x 3.4 cm postoperative fluid collection in the gallbladder fossa, consistent with hemato ma versus biloma versus abscess. 2. Patchy airspace opacities in the visualized portions of the lung bases, consistent with atelectasi s versus pneumonia. Reviewed, dictated and finalized at location A. ATION SUPERVISOR IMPRESSION: 1. 5.1 x 2.8 x 3.4 cm postoperative fluid collection in the gallbladder fossa, consistent with hematoma versus biloma versus abscess. 2. Patchy airspace opacities in the visualized portions of the lung bases, cons istent with atelectasis versus pneumonia.
== END 2020-03-25 06:41 | disposition home or self-care (01) ==
PROVIDERS: PCP Internal Medicine; Visit Provider Surgery
DX: Z48.815 Encounter for surgical aftercare following surgery on the digestive system (principal); K80.00 Calculus of gallbladder with acute cholecystitis without obstruction; R10.10 Upper abdominal pain, unspecified; R93.5 Abnormal findings on diagnostic imaging of other abdominal regions, including retroperitoneum; R91.8 Other nonspecific abnormal finding of lung field
CPT/HCPCS: 74183; 76376; A9577

== ENCOUNTER 2024-12-02 02:54 | Day surgery (SDC) | payer MEDICARE, SELFPAY ==
[2024-11-24 13:38] VITALS: BMI 28.0
--- NOTE | 2024-11-24 13:47 | PC.NURSE ---
Addendum entered by Patsy Holden RN 11/24/24 13:58: Dr Starks office to call pt with info on Plavix hold, pt aware ETHAN Original Note: Report to the Outpatient Waiting Room, entrance under the green pavilion located off [facility], at time __0800am on date . Planned Procedure Time: _1000am .? Time changes happen often and if your time is changed the preop area will call you the afternoon before. - You and your visitor will be asked to self-screen and do not enter if you have any COVID symptoms. Please call surgeon if you need to reschedule. - A mask is optional within the hospital at this time. Patients may have clear liquids (water, carbonated beverages, clear teas, apple juice) until 3 hours prior to surgery with a maximum of 20 ounces. - No food from midnight until time of surgery and no smoking, or chewing tobacco (or any form of nicotine). No chewing gum, candy or mints. (0700am) Take only the following medications with a SIP of water on the morning of surgery: Metoprolol DO NOT STOP ANY OF YOUR OTHER PRESCRIPTION MEDICATIONS PRIOR TO SURGERY EXCEPT THE FOLLOWING Hold all vitamins and supplements for 3 days per anesthesiologist. Medications to discontinue per physician Aspirin is ok, but Hold the Plavix for 4 days prior if ok w Cardiology per Dr Song Date to take last dose____11/27/24 Please no make-up, nail lao, hairspray, perfume, deodorant, or body powder the day of surgery.? No jewelry (including any body piercings) or valuables the day of surgery, leave them at home.? Please take a shower or bath the night before, or the morning of, surgery with an antibacterial soap.?(DIAL) Wear comfortable, loose fitting clothing.? - Jewelry must be removed prior to entering the operating room.? Rings and piercings that are not removed may be cut off. - The hospital will not accept responsibility for valuables.? - Please leave all valuables, including medications, at home the day of surgery. If you are going home after surgery, a licensed flatbed truck driver must drive you home.? - NO public transportation without another adult if you receive anesthesia. - We recommend that an adult stay with you for 24 hours following discharge. - We also recommend that you do not drive, make important decision, drink alcoholic beverages, or take any drugs that were not prescribed by your health care provider for at least 24 hours after your discharge time. Follow any additional instructions given to you from your surgeon. Telephone instructions given to _Patient and asked if any additional questions and then verbalized understanding. Patient advised to call surgeon office or pre surgery nurse liaison [phone] if any additional questions.
--- NOTE | 2024-11-26 07:21 | PM.IMHP ---
H&P: HPI History of Present Illness Date/Time: 11/26/24 07:21 Chief Complaint: Patient has persistent recurrent swelling of the right olecranon bursa. He has had a couple of aspirations unfortunately the fluid has returned. He like to have this surgically excised. Review of Systems Musculoskeletal: Musculoskeletal: Reports arthralgias, Reports joint swelling and Reports stiffness PMFSH Past Medical History Medical History Osteoarthritis Coronary artery disease Hypertension (Unknown) Surgical History Surgical History Hx laparoscopic cholecystectomy History of appendectomy History of excision of pilonidal cyst History of total bilateral knee replacement History of coronary artery bypass graft (~01/15/20) Three-vessel bypass done at [facility] per Dr. Tavera. Family History Family History Father Lung cancer Sibling Dementia Sibling Cancer of kidney Social History Social History (Updated 11/24/24 @ 08:08 by Pastora Ball [facility]) Social History: The patient is and lives with his in [place]. He has 2 daughters. 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 Lifelong nonsmoker. No alcohol or illicit substance abuse. He designates his , Shannon, as his surrogate decision maker and he wishes to be a full code. Smoking packs per day: 1 Smoking cigarettes per day: 20.0 Years smoked: 13 Smoking pack-years: 13.00 Smoking status: Former smoker Tobacco type: cigarettes Smoking end date: 03/18/78 Alcohol intake: current Drinks per week: 2 Substance use: never Substance use type: does not use Lack of Transportation: No Lack of Food: Never True Current Housing: I Have Housing Concerned About Future Housing: No Difficulty Paying Gas/Electric Bills: No Difficulty Paying for Meds: No Currently Unemployed: No Education: High School Diploma/GED Difficulty w/ Childcare or Family Care: No Living arrangements: with family Additional living arrangements comments: Gender identity (if verbalized by the patient): Male Sexual Orientation (if Verbalized by the Patient): Straight or Heterosexual Spiritual care concerns: No Meds Home Medications and Allergies Home Medications ?Medication ?Instructions ?Recorded ?Confirmed ?Type atorvastatin 40 mg tablet 40 mg PO DAILY 03/11/20 11/24/24 History clopidogrel 75 mg tablet (Plavix) 75 mg PO DAILY 03/11/20 11/24/24 History lisinopril 10 mg tablet 10 mg PO DAILY 03/11/20 11/24/24 History metoprolol succinate 50 mg 50 mg PO DAILY 03/11/20 11/24/24 History tablet,extended release 24 hr aspirin 81 mg tablet,delayed 81 mg PO DAILY 04/11/20 11/24/24 History release (Adult Aspirin Regimen) ezetimibe 10 mg tablet 10 mg PO DAILY 11/24/24 11/24/24 History sildenafil 50 mg tablet (Viagra) 50 mg PO DAILY PRN sexual activity 11/24/24 11/24/24 History Allergies Allergy/AdvReac Type Severity Reaction Status Date / Time No Known Allergies Allergy Verified 11/24/24 13:28 Exam Narrative: On exam he is a rather large olecranon bursa at least 4 centimeters across. It is fluctuant. Neurologically appears to be intact. He has fairly good motion of his elbow. He lacks a few degrees of extension and can flex to about 120?. Neurologically appears to be grossly intact. Radiology Reports: Comments: XRay Report Ambulatory Signed Patient: Micah Cano Results of Diagnostic Exam (Interpreted Today) Order: 11/24/24 08:00 XR elbow RT 2V Routine Interpretation: AP lateral of the right elbow demonstrates moderately severe degenerative change loose body in the olecranon space. Elbow X-Ray 11/24/24 Orthopedics Result Report 11/24/24 Assessment and Plan Assessment and plan (1) Olecranon bursitis, right elbow: Code(s): M70.21 - Olecranon bursitis, right elbow Status: Acute Assessment and Plan: Patient has a rather large olecranon bursa of his right elbow. He has had this aspirated a couple times. Unfortunately has recurred. He would like to consider surgical excision of the bursa. I discussed the risks, benefits, limitations, and and alternatives of the procedure in detail with me understands and agrees. He is well aware the fact that the bursa can come back. He is also aware the fact that he has a fairly significant arthritis of his right elbow. (2) Primary osteoarthritis, right elbow: Code(s): M19.021 - Primary osteoarthritis, right elbow Status: Acute
[2024-12-02] VITALS (7 sets, daily range): BP systolic 124–152; BP diastolic 57–74; PULSE 54–63; RESP 12–16; TEMP 36.2–36.6; O2SAT 98–100; BMI 27.8
--- OUTSIDE RECORDS SUMMARY | 2024-12-02 03:00 | XMS_ITS | Encounter Summary ---
Author Organization [facility] Healthcare Address [address] [place] [id number] Care Team Providers Care Medical Staff Credentialing Coordinator Name Role Phone Ho Ortiz MD Primary Care Provider [phone] Encounter Details Date Type Department Care Team (Late st Contact Info) Description 04/15/2020 Documentation Internal Medicine Micah Monterroso Social History Tobacco Use Types Packs/Day Years Used Date Smoking Tobacco: Never Smokeless Tobacco: Never Humiliation, Afraid, Rape, and Kick questionnair e Answer Date Recorded Within the last year, have y ou been afraid of your partner or ex-partner? No 01/19/2020 Within the last year, have y ou been humiliated or emotionally abused in other ways by your partner or ex-partner? No Within the last year, have y ou been kicked, hit, slapped, or otherwise physically hurt by your partner or ex-partner? No 01/19/2020 Within the last year, have y ou been raped or forced to have any kind of sexual activity by your partner or ex-partner? No 01/19/2020 Social Connection and Isolation Panel Answer Date Recorded In a typical week, how many times do you talk on the phone with family, friends, or neighbors? More than three times a week 01/19/2020 How often do you get togethe r with friends or relatives? More than three times a week 01/19/2020 Attends [employer] Services Not on file 01/18 Do you belong to any clubs o r organizations such as taoism groups, unions, fraternal or athletic groups, or school groups? Yes 01/19/2020 How often do you attend meet ings of the clubs or organizations you belong to? More than 4 times per year 01/19/2020 Are you , , di vorced, , never , or living with a partner? 01/19/2020 Overall Financial Resource Strain (CARDIA) Answe r Date Recorded How hard is it for you to pa y for the very basics like food, housing, medical care, and heating? Somewhat hard 01/19/2020 Hunger Vital Sign Answer Date Recorded Within the past 12 months, y ou worried that your food would run out before you got the money to buy more. Never true 01/19/20 20 Within the past 12 months, t he food you bought just didn't last and you didn't have money to get more. Never true 01/19/2020 PRAPARE - Transportation Answer Date Re corded In the past 12 months, has l ack of transportation kept you from medical appointments or from getting medications? No 05/2019 In the past 12 months, has l ack of transportation kept you from meetings, work, or from getting things needed for daily living? No 01/19/2020 Sex and Gender Information Value Date Recorded Sex Assigned at Not on file Legal Sex Male 2:31 PM CDT Gender Identity Male 05/31/2020 12:58 PM CDT Sexual Orientation Not on file documented as of this encounter Plan of Treatment Not on file documented as of this encounter Visit Diagnoses Not on filedocumented in this encounter Care Teams Medical Staff Credentialing Coordinator Relationship Specialty Start Date End Date Ho Ortiz MD PCP - General 01/13/20 documented as of this encounter
[2024-12-02] MEDS: KETOROLAC 15 MG/ML VIAL (*BKC) IV PUSH (09:30)
[2024-12-02] MEDS: LACTATED RINGERS 1,000 ML 30 ML IV CONT ×2 (09:30→11:48)
[2024-12-02] MEDS: ACETAMINOPHEN 500 MG TABLET 1000 MG PO (09:30)
--- NOTE | 2024-12-02 09:56 | WPDHPUPDATE1 ---
History and Physical Update Update Date/Time: 12/02/24 09:56 History and Physical has been reviewed, including an updated exam of the patient. There are NO changes in the patient's condition. Risks, benefits, and alternatives have been discussed and questions answered. Patient agrees to proceed with procedure. Patient understands the risks of the procedure including the significant risk of recurrence.
--- NOTE | 2024-12-02 10:01 | WPDANESEPPF ---
Anes - Initial Pre Proc Eval Procedure: Operation Date: 12/02/24 10:30 Proposed Procedures p Excision of Right Olecranon Bursa - Cam Song MD Date/Time: 12/02/24 10:01 Surgeon: Cam Song MD Pre Op Diagnosis: Rt Olecranon Bursitis Patient Data Age: 79 Gender: M Height: 1.75 m Weight: 86 kg Allergies Allergy/AdvReac Type Severity Reaction Status Date / Time No Known Allergies Allergy Verified 11/24/24 13:28 Home Medications ?Medication ?Instructions ?Recorded ?Confirmed ?Type atorvastatin 40 mg tablet 40 mg PO DAILY 03/11/20 11/24/24 History clopidogrel 75 mg tablet (Plavix) 75 mg PO DAILY 03/11/20 11/24/24 History lisinopril 10 mg tablet 10 mg PO DAILY 03/11/20 11/24/24 History metoprolol succinate 50 mg 50 mg PO DAILY 03/11/20 12/02/24 History tablet,extended release 24 hr aspirin 81 mg tablet,delayed 81 mg PO DAILY 04/11/20 11/24/24 History release (Adult Aspirin Regimen) ezetimibe 10 mg tablet 10 mg PO DAILY 11/24/24 11/24/24 History sildenafil 50 mg tablet (Viagra) 50 mg PO DAILY PRN sexual activity 11/24/24 11/24/24 History Patient hx anesthesia problems: none Family hx anesthesia problems: none Results Review: All pre-operative results and documents have been reviewed as part of the pre-operative evaluation. 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 per Dr. Tavera. Family History Family History Father Lung cancer Sibling Dementia Sibling Cancer of kidney Social History Social History (Updated 11/24/24 @ 08:08 by Pastora M. Schuepbach, IT SERVICE MANAGER) Social History: The patient is and lives with his in [place]. He has 2 daughters. 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 Lifelong nonsmoker. No alcohol or illicit substance abuse. He designates his , Shannon, as his surrogate decision maker and he wishes to be a full code. Smoking packs per day: 1 Smoking cigarettes per day: 20.0 Years smoked: 13 Smoking pack-years: 13.00 Smoking status: Former smoker Tobacco type: cigarettes Smoking end date: 03/18/78 Alcohol intake: current Drinks per week: 2 Substance use: never Substance use type: does not use Lack of Transportation: No Lack of Food: Never True Current Housing: I Have Housing Concerned About Future Housing: No Difficulty Paying Gas/Electric Bills: No Difficulty Paying for Meds: No Currently Unemployed: No Education: High School Diploma/GED Difficulty w/ Childcare or Family Care: No Living arrangements: with family Additional living arrangements comments: Gender identity (if verbalized by the patient): Male Sexual Orientation (if Verbalized by the Patient): Straight or Heterosexual Spiritual care concerns: No Anes - Eval Final PreProcedure Day of Procedure 12/02/24 10:01 Patient weight: overweight Heart: regular rate and rhythm Lungs: clear to auscultation Airway: Mallampati scale class II Neurological: alert and oriented Last oral intake: >/= 8 hours ASA classification: III Emergent: no Anesthetic plan: proceed Anesthesia type and monitoring: general GIVS and standard monitoring Results Review: All pre-operative results and documents have been reviewed as part of the pre-operative evaluation. Informed Consent: The patient's anesthetic plan and its attendant risks and benefits were discussed with the patient/family/POA. Questions were solicited and answers provided to the satisfaction of the patient/family/POA.
[2024-12-02] MEDS: ceFAZolin 2 GM in SODIUM CHLORIDE 0.9% IV 50 ML 100 ML IVPB (11:00)
--- NOTE | 2024-12-02 11:24 | S_PTH ---
PATIENT: Micah Cano LOC: [facility] U#:[id number] AGE/SX: 79/M ROOM: RE12/02/[address]: Cam Song MD : 1945 BED: DIS: 12/02/2024 SPEC #: [id number] RECD: 12/02/24 13:22 STATUS: CAT REQ #: [id number] ROYA: 12/02/24 11:[address]: Cam Song DEPT: [facility] RECD BY: Heather Mays ENTERED: 12/02/24 13:22 SP TYPE: Surgical OTHR DR: Ho OrtizMD Tissues: A - Soft Tissue Procedures: Hematoxylin and Eosin Stain Gross and Microscopic Level 3
[2024-12-02] MEDS: LIDO 1%/EPINEPHRINE 1:100,000 20 ML VIAL 10 ML INFILTRATE (11:27)
--- NOTE | 2024-12-02 11:32 | W.PM.PROC2 ---
Procedure Note - Detailed Date of Procedure 12/02/24 Pre-op Diagnosis RIGHT Olecranon Bursitis Post-op Diagnosis Same Procedure Performed Excision olecranon bursa Surgeon Cam Song MD Anesthesia General Indications Pain. swelling and recurrence Description of Procedure Patient was brought to operating room 7. General anesthetic was administered. Sterilely prepped and draped in usual manner. Longitudinal incision made over the bursa. Significant amount of serous fluid was obtained. A large bursa was seen in this was excised using knife scissors and a rongeur. This removed the vast majority of the bursa. The wound then irrigated. Hemostasis obtained. Closed with 2-0 Vicryl and 3-0 nylon. Sterile dressing applied. Patient tolerated procedure well. Pathology Yes Complications No immediate complications Condition Stable Disposition PACU [facility] Billing Surgery - Charge Forward: Surgery Billing ([id number] Exc Olec. Bursa)
== END 2024-12-02 13:10 | disposition home or self-care (01) ==
PROVIDERS: PCP Internal Medicine; Visit Provider Orthopaedic Surgery
PROC: (CPT 24110; principal; 2024-12-02 10:30)
DX: M70.21 Olecranon bursitis, right elbow (principal); Z87.891 Personal history of nicotine dependence
CPT/HCPCS: 24105; 88304; J0690; A9270; J1100; J1885; J2003; J2004; J2405; J2704; J3010; J7120